=== PATIENT | male | born 1955 | race Caucasian/White ===

== ENCOUNTER 2016-10-25 21:04 | Emergency (ER) | payer BC ==
--- NOTE | 2016-10-25 21:35 | Emergency Department Record ---
History of Present Illness - General Chief complaint: General Stated complaint: TOOTH CAUGHT IN THROAT Source: Patient Mode of Arrival: Ambulatory Limitations: No limitations - History of Present Illness Initial comments: 61 yo male presents to ED with a CC swallowed foreign body and esophageal discomfort. Patient reports that he was eating dinner when a temporary tooth broke off resulting in accidental ingestion. Patient reports mild discomfort to the mid-esophagus, denies coughing, wheezing, or difficulty in breathing symptoms. Patient was only concerned about the danger of swallowing the temporary filling. MD complaint: Foreign body Onset/Timin -: Hour(s) Location: Throat Severity: Moderate Quality: Dull Consistency: Constant Improves with: None Worsens with: Swallowing Context- Dental: Other - Related Data Home Medications Medication Instructions Recorded Confirmed Last Taken Aspirin [Aspir-Low] 81 mg PO DAILY 10/25/16 10/25/16 10/25/16 Carvedilol [Carvedilol] 12.5 mg PO DAILY 10/25/16 10/25/16 10/25/16 Lisinopril [Lisinopril] 10 mg PO DAILY 10/25/16 10/25/16 10/25/16 Simvastatin [Zocor] 10 mg PO QHS 10/25/16 10/25/16 10/25/16 Allergies Allergy/AdvReac Type Severity Reaction Status Date / Time No Known Drug Allergies Allergy Verified 10/25/16 21:30 Review of Systems Constitutional: Denies: Chills, Fever, Malaise, Night sweats Eyes: Denies: Eye discharge, Eye pain ENT: Denies: Congestion, Dental pain Respiratory: Denies: Cough, Dyspnea Cardiovascular: Denies: Chest pain, Dyspnea on exertion Endocrine: Denies: Fatigue, Heat or cold intolerance Gastrointestinal: Denies: Abdominal pain, Nausea, Vomiting Genitourinary: Denies: Incontinence, Retention, Testicular pain Musculoskeletal: Denies: Arthralgia, Back pain, Gout, Joint swelling Skin: Denies: Bruising, Change in color Neurological: Denies: Abnormal gait, Confusion, Headache Psychiatric: Denies: Anxiety Hematological/Lymphatic: Denies: Anemia, Blood Clots Physical Exam - General General Appearance: Alert, Oriented x3, Cooperative, No acute distress Limitations: No limitations - Head Head exam: Atraumatic, Normocephalic, Normal inspection Head exam detail: negative: Abrasion, Contusion, Landaverde's sign, General tenderness, Hematoma, Laceration - Eye Eye exam: Normal appearance. negative: Conjunctival injection, Periorbital swelling, Periorbital tenderness, Scleral icterus - ENT Ear exam: negative: Auricular hematoma, Auricular trauma Nasal Exam: negative: Active bleeding, Discharge, Dried blood, Foreign body Mouth exam: negative: Drooling, Laceration, Muffled voice, Tongue elevation - Neck Neck exam: Normal inspection. negative: Meningismus, Tenderness - Respiratory Respiratory exam: Normal lung sounds bilaterally. negative: Rales, Respiratory distress, Rhonchi, Stridor - Cardiovascular Cardiovascular Exam: Regular rate, Normal rhythm, Normal heart sounds - GI/Abdominal GI/Abdominal exam: Soft. negative: Rebound, Rigid, Tenderness - Rectal Rectal exam: Deferred - exam: Deferred - Extremities Extremities exam: Normal inspection. negative: Calf tenderness, Pedal edema, Tenderness - Back Back exam: Denies: CVA tenderness (R), CVA tenderness (L) - Neurological Neurological exam: Alert, Normal gait, Oriented X3 - Psychiatric Psychiatric exam: Normal affect, Normal mood - Skin Skin exam: Normal color. negative: Abrasion Type of lesion: negative: abrasion Course Vital Signs 10/25/16 21:26 Temperature 98.4 F Pulse Rate [ 77 Pulse Ox Probe] Respiratory 21 Rate Blood Pressure 155/83 [Right Arm] Pulse Ox 98 - Reevaluation(s) Reevaluation #1: 10/25/16 21:34 Patient reports that he is able to swallow liquids without difficulty, and declined imaging to exclude the presence or absence of foreign body. Patient was reassured that ingestion of the temporary tooth was not a danger and would pass through the GI tract likely without complication. Patient appears stable for discharge at this time. Disposition Disposition: Discharge Clinical Impression: Swallowed foreign body Qualifiers: Encounter type: initial encounter Qualified Code(s): T18.9XXA - Foreign body of alimentary tract, part unspecified, initial encounter Disposition: Home, Self-Care Condition: (2) Stable Instructions: Esophageal Foreign Body (ED) Additional Instructions: Return to ED if your symptoms worsen or if you have any concerns. Follow-up with your family doctor in 3-5 days as directed. Forms: Patient Portal Access Time of Disposition: 21:36 Quality - Quality Measures Quality Measures: N/A - Blood Pressure Screening Blood Pressure Classification: Pre-Hypertensive BP Reading Systolic Measurement: 155 Diastolic Measurement: 83 Screening for High Blood Pressure: < Pre-Hypertensive BP, F/U Documented > [ [id number]] Pre-Hypertensive Follow-up Interventions: Referral to alternative/primary care provider.
== END 2016-10-25 21:45 | disposition home or self-care (01) ==
LOC: ER 21:04
DX: T18.9XXA Foreign body of alimentary tract, part unspecified, initial encounter (principal)
CPT/HCPCS: 99282